=== PATIENT | female | born 1990 | race American Indian/Alaskan Native ===

== ENCOUNTER 2019-04-25 20:12 | Emergency (ER) | payer MEDICAID, OTHER ==
[2019-04-25 20:42] VITALS: BP 105/70
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
[2019-04-25] MEDS ORDERED: IBUPROFEN PO ONE (21:58)
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
== END 2019-04-25 22:26 | disposition home or self-care (01) ==
LOC: ED 20:12
DX: S39.012A Strain of muscle, fascia and tendon of lower back, initial encounter (principal); V49.59XA Passenger injured in collision with other motor vehicles in traffic accident, initial encounter; X58.XXXA Exposure to other specified factors, initial encounter; Y93.89 Activity, other specified; Y92.488 Other paved roadways as the place of occurrence of the external cause; Y99.8 Other external cause status
CPT/HCPCS: 72100